=== PATIENT | female | born 1975 | race Caucasian/White ===

== ENCOUNTER 2020-03-24 17:55 | Emergency (ER) | payer BC ==
[~2020-03-24] VITALS: Ht 170.2 cm; Wt 96.2 kg
[~2020-03-24 17:55] MED LIST: "\\\"MUSCLE RELAXER\\\""; ALEVE220 M1 PO; AZITHROMYCIN250 MG PO; CIPROFLOXACIN500 MG; CODEINE-GUAIFE120 ML PO; FLOMAX0.4 MG PO; GUAIATUSSIN AC10 ML PO; KEFLEX500 MG PO; NORCO 5-325 TA1 EACH PO; PREDNISONE20 MG PO; ZOFRAN4 MG PO
== END 2020-03-24 21:17 | disposition home or self-care (01) ==
LOC: ED 17:55
DX: J20.9 Acute bronchitis, unspecified (principal); Z88.0 Allergy status to penicillin; Z20.828 Contact with and (suspected) exposure to other viral communicable diseases
CPT/HCPCS: 71045; 80053; 85025; 85379; 87502; 99283-25; C9803; U0003

== ENCOUNTER 2020-06-05 11:24 | Emergency (ER) | payer BC ==
[~2020-06-05] VITALS: Ht 170.2 cm; Wt 90.7 kg
[2020-06-05] MEDS ORDERED: ONDANSETRON ODT8 MG PO (13:14)
[2020-06-05] MEDS ORDERED: MEDI-MECLIZINE25 MG PO (13:14)
== END 2020-06-05 13:32 | disposition home or self-care (01) ==
LOC: ED 11:24
DX: H83.09 Labyrinthitis, unspecified ear (principal); Z88.0 Allergy status to penicillin
CPT/HCPCS: 80053; 81001; 84703; 85025; 99284; J7040

== ENCOUNTER 2020-07-30 06:40 | Emergency (ER) | payer BC ==
[~2020-07-30] VITALS: Ht 170.2 cm; Wt 91.0 kg
[~2020-07-30 06:40] MED LIST changes: +MEDI-MECLIZINE25 MG PO; +ONDANSETRON ODT8 MG PO
[2020-07-30] MEDS ORDERED: ZOFRAN4 MG PO (07:37)
[2020-07-30] MEDS ORDERED: ANAPROX DS550 MG PO (07:37)
[2020-07-30] MEDS ORDERED: ALL DAY ALLERGY10 M3 PO (07:37)
== END 2020-07-30 08:50 | disposition home or self-care (01) ==
LOC: ED 06:40
DX: R51.9 Headache, unspecified (principal); R11.0 Nausea; Z20.822 Contact with and (suspected) exposure to COVID-19; Z88.0 Allergy status to penicillin
CPT/HCPCS: 96374; 96375; 99284-25; C9803; J1200; J1885; J2405; J7040; U0003

== ENCOUNTER 2021-02-17 06:00 | Emergency (ER) | payer BC ==
[~2021-02-17] VITALS: Ht 170.2 cm; Wt 91.1 kg
[~2021-02-17 06:00] MED LIST changes: +ALL DAY ALLERGY10 M3 PO; +ANAPROX DS550 MG PO
--- OUTSIDE RECORDS SUMMARY | 2021-02-17 06:08 | XMS ---
PreManage Notification: KODY ELLIOTT Security Sales Development Coordinator Events No recent Security Events currently on file CRITERIA MET - [facility] - Has Care Guidelines CARE PROVIDERS Magdy Nielsen Community Health Worker 04/25/2019-Current Fermin - PHONE: [phone] HITESH FORD Nurse Practitioner: Family 12/20/2018-Current PHONE: [phone] Ibeth has no Care Guidelines for this patient. Care History Medical/Surgical 10/17/2019 [facility] Advised patient to use walk in clinic for future non life threatening medical treatment. 03/29/2019 [facility] Patient has 3 month follow up with Hitesh Ford.\T\nbsp; Left voicemail for call back to discuss appropriate use of ED. 12/20/2018 [facility] - Patient is currently established with [facility]. If patient is seen in the ED during business hours. Please contact [facility] at [facility]. Care Recommendation: This patient has had 5 or more Emergency Department visits in the last 12 months.\T\nbsp; Patient requires education on the scope and purpose of the ED as an acute care provider not a Primary Care Provider and should not be utilized for chronic conditions.\T\nbsp; These are guidelines and the provider should exercise clinical judgment when providing care. ELizzyD. VISIT COUNT (12 MO.) 4 [facility] [place] TOTAL 4 NOTE: Visits indicate total known visits. ED/UCC VISIT TRACKING (12 MO.) 02/17/2021 06:00 [facility] [place] TYPE: Emergency COMPLAINT: - VOMITING 07/30/2020 06:[address] [facility] [place] TYPE: Emergency DIAGNOSES: - Nausea - Headache, unspecified - Allergy status to penicillin 06/05/2020 11:[address] [facility] [place] TYPE: Emergency COMPLAINT: - DIZZY, DEHYDRATED DIAGNOSES: - Labyrinthitis, unspecified ear - Allergy status to penicillin - Dizziness and giddiness 03/24/2020 17:56 [place] [facility] TYPE: Emergency COMPLAINT: - COUGHING UP BLOOD, CHEST CONGESTION,FEVER DIAGNOSES: - Cough - Allergy status to penicillin - Contact with and (suspected) exposure to other viral communicable diseases - Acute bronchitis, unspecified INPATIENT VISIT TRACKING (12 MO.) No inpatient visits to display in this time frame [email or web address]
[2021-02-17] MEDS ORDERED: ONDANSETRON ODT4 MG PO (08:57)
== END 2021-02-17 09:24 | disposition home or self-care (01) ==
LOC: ED 06:00
DX: R11.2 Nausea with vomiting, unspecified (principal); Z20.822 Contact with and (suspected) exposure to COVID-19; Z79.899 Other long term (current) drug therapy; Z88.0 Allergy status to penicillin
CPT/HCPCS: 80053; 81001; 83690; 84703; 85025; 87088; 96374; 99284-25; A9270; C9803; J2405; J7030; U0003

== ENCOUNTER 2021-06-21 12:49 | Emergency (ER) | payer BC ==
[~2021-06-21] VITALS: Ht 170.2 cm; Wt 90.7 kg
[~2021-06-21 12:49] MED LIST changes: +ONDANSETRON ODT4 MG PO
== END 2021-06-21 14:54 | disposition home or self-care (01) ==
LOC: ED 12:49
DX: B34.9 Viral infection, unspecified (principal); M19.90 Unspecified osteoarthritis, unspecified site; Z88.0 Allergy status to penicillin; Z20.822 Contact with and (suspected) exposure to COVID-19
CPT/HCPCS: 99283; A9270; C9803; U0003

== ENCOUNTER 2023-03-03 10:07 | Emergency (ER) | payer SELFPAY ==
[~2023-03-03] VITALS: Ht 170.2 cm; Wt 92.5 kg
[~2023-03-03 10:07] MED LIST changes: +ALEVE220 MG PO; +CETIRIZINE HCL10 MG PO; +CLINDAMYCIN HC150 MG PO; +CYCLOBENZAPRINE10 MG PO; +DICLOFENAC SODI75 MG PO; +IBUPROFEN400 MG PO; +MELOXICAM15 MG PO; +MOBIC15 MG PO; +MOTRIN IB200 MG PO; +OXYCODON-ACETA1 EAC2 PO; +SERTRALINE HCL100 MG PO; +SERTRALINE HCL50 MG PO; +TYLENOL325 MG PO
[2023-03-03 10:59] LABS: BASOPHILS 0.2 % (0-2); EOSINOPHILS 1.1 % (0-6); HEMATOCRIT 43.2 % (35.0-50.0); HEMOGLOBIN 14.9 g/dL (12.0-18.0); LYMPHOCYTES 35.6 % (24-44); MCH 31.4 (27-36); MCHC 34.5 g/dl (30-36); MONOCYTES 11.6 % (0-12); NEUTROPHILS 51.5 % (39-80); PLATELET COUNT 290 K/uL (140-440); RBC 4.75 M/ul (4.3-5.7); RDW 13.1 (10.5-15.0)
[2023-03-03 11:20] LABS: ALBUMIN/GLOBULIN RATIO 1.14 (1.1-2.4); ALKALINE PHOSPHATASE 104 U/L (46-116); ALT (SGPT) 27 U/L (14-59); ANION GAP 11.9 (7-21); AST (SGOT) 16 U/L (15-37); BILIRUBIN, TOTAL 0.4 ng/dL (0.2-1.0); BUN/CREATININE RATIO 12.67 (6.0-28.6); CARBON DIOXIDE 25 mmol/L (21-32); CHLORIDE 107 mmol/L (98-107); CREATININE, SERUM 0.71 mg/dL (0.55-1.02); GLOMERULAR FILTRATION RATE,EST 106 mL/min (>60); MAGNESIUM 1.9 mg/dL (1.8-2.4); POTASSIUM 3.9 mmol/L (3.5-5.1); PROTEIN, TOTAL 7.5 g/dL (6.4-8.2); UREA NITROGEN 9 mg/dL (7-18)
[2023-03-03 14:00] VITALS: BP 130/92
--- NOTE | 2023-03-03 22:25 | EKG ---
[facility] [address] [place] [address] Signed Normal sinus rhythm Left anterior fascicular block Abnormal ECG No previous ECGs available Confirmed by Simran Rivas MD () on 03/03/2023 10:25:06 PM Electronically Signed By: SIMRAN RIVAS MD 03/03/232224 PATIENT NAME: KODY GAFFNEY Electrocardiogram DATE OF : 79 PHYSICIAN: SIMRAN RIVAS MD REPORT #: [id number] REPORT IS CONFIDENTIAL AND NOT TO BE RELEASED WITHOUT AUTHORIZATION
== END 2023-03-03 14:00 | disposition home or self-care (01) ==
LOC: ED 10:07
PROVIDERS: Emergency Medicine
DX: R07.89 Other chest pain (principal); M79.602 Pain in left arm; Z88.0 Allergy status to penicillin
CPT/HCPCS: 36415; 71045; 80053; 83735; 84484; 85025; 93005; 93010

== ENCOUNTER 2025-04-01 04:27 | Emergency (ER) | payer SELFPAY ==
[~2025-04-01] VITALS: Ht 170.2 cm; Wt 99.4 kg
--- OUTSIDE RECORDS SUMMARY | ~2025-04-01 | XMS | Continuity of Care Document ---
Demographics + + + | Address | [address] | | | [place] [address] | + + + | Preferred Language | Unknown | + + + | Marital Status | Domestic partner | + + + | Jain Affiliation | Unknown | + + + | Race | White | + + + | Ethnic Group | Not or | + + + Author + + + | Author | [facility] | + + + | Organization | [facility] | + + + | Address | [address] | | | [place] [address] | + + + | Phone | | + + + Care Team Providers + + + + | Care Bottle Booth Attendant Name | Role | Phone | + + + + Unavailable | Unavailable | + + + + Unavailable | Unavailable | + + + + Allergies and Intolerances + + + + + + | date | description | facility | reaction | severity | + + + + + + | 2025-01-27 | Penicillin | [facility] Urticaria | Moderate | | 00:00 | | [facility] | | | + + + + + + | 2025-01-27 | Penicillin | [facility] - | Urticaria | Moderate | | 00:00 | | [facility] | | | + + + + + + | 2025-01-27 | Penicillin | [facility] - | Urticaria | Moderate | | 00:00 | | [facility] | | [facility] | | | + + + + + + Encounters No information. Functional Status No information. Immunizations No information. Medications + + + + | date | description | facility | + + + + | (no date) | CETIRIZINE HCL | [facility] [place] [place] [facility] | | | | [facility] | + + + + | (no date) | NAPROXEN SODIUM | [facility] [place] [place] [facility] | | | | [facility] | + + + + | (no date) | MELOXICAM | [facility] | | | | [facility] | + + + + | (no date) | MELOXICAM | [facility] | | | | [facility] | + + + + | 2025-01-27 00:00 | VALACYCLOVIR HCL | [facility] | | | | [facility] | + + + + | (no date) | CIPROFLOXACIN HCL | [facility] | | | [facility] | + + + + | (no date) | SERTRALINE HCL | [facility] | | | [facility] | + + + + | (no date) | SERTRALINE HCL | [facility] | | | [facility] | + + + + | (no date) | CYCLOBENZAPRINE HCL | [facility] [place] [facility] | | | [facility] | + + + + | 2025-01-27 00:00 [place] [facility] [place]ACETAMINOPHEN [place] [facility] | + + + + | (no date) | G[place]IN[place] [facility] [place] [facility] PHOSPHATE | [facility] | + + + + Problems + + + + | date | description | facility | + + + + | 2025-01-27 00:00 [place] [facility] [place] [facility] | + + + + Procedures No information. Results/Labs No information. Social History +--------+ + + | date | description | facility | +--------+ + + Vital Signs + + + +---------+ | date | measurement | value | units | + + + +---------+ | 2025-01-27 00:00 | BMI | 34.3 | kg/m2 | + + + +---------+ | 2025-01-27 00:00 | BP_diastolic | 104 | mmHg | + + + +---------+ | 2025-01-27 00:00 | BP_systolic | 156 | mmHg | + + + +---------+ | 2025-01-27 00:00 | heart_rate | 63 | /min | + + + +---------+ | 2025-01-27 00:00 | height_metric | 170.18 | cm | + + + +---------+ | 2025-01-27 00:00 | height_standard | 67 | in | + + + +---------+ | 2025-01-27 00:00 | o2_saturation | 97 | % | + + + +---------+ | 2025-01-27 00:00 | respiration_rate | 16 | /min | + + + +---------+ | 2025-01-27 00:00 | | 98.4 | F | | | temperature_standar | | | | | d | | | + + + +---------+ | 2025-01-27 00:00 | weight_metric | 99.399 | kg | + + + +---------+ | 2025-01-27 00:00 | weight_standard | 219.137 | lb | + + + +---------+"
[~2025-04-01 04:27] MED LIST changes: +HYDROCODON-ACE1 EA10 PO; +VALTREX1000 MG PO
[2025-04-01 05:11] LABS: BLOOD/HGB, URINE MODERATE (Negative); KETONE, URINE NEGATIVE (Negative); LEUK ESTERASE, URINE NEGATIVE (negative); NITRITE, URINE NEGATIVE (negative)
[2025-04-01 05:20] LABS: BACTERIA, URINE 2+ /hpf (negative); CASTS, URINE NONE SEEN \\lpf; CRYSTALS, URINE NONE SEEN (0-1+); EPITHELIAL CELLS, URINE SQUAMOUS 3+ /lpf (0-1+); REFLEX CULTURE, URINE No (No)
[2025-04-01] MEDS ORDERED: MACROBID 100 M100 MG PO (05:27)
[2025-04-01] MEDS ORDERED: NITROFURANTOIN MONOHYD MACROCR 100 MG HOME.PACK PO ONE (05:30)
[2025-04-01 05:41] VITALS: BP 129/84
== END 2025-04-01 05:43 | disposition home or self-care (01) ==
LOC: ED 04:27
PROVIDERS: Family Medicine
DX: N39.0 Urinary tract infection, site not specified (principal); Z88.0 Allergy status to penicillin
CPT/HCPCS: 81001; 99283